=== PATIENT | male | born 1975 | race Caucasian/White ===

== ENCOUNTER 2023-12-16 20:12 | Observation (INO) | payer BC ==
--- NOTE | 2023-12-16 20:24 | ED ---
Chest Pain HPI - General Chief Complaint: Chest Pain Stated Complaint: chest pain Time Seen by Provider: 12/16/23 20:22 Source: patient, RN notes reviewed, old records reviewed Mode of arrival: ambulatory - History of Present Illness Initial Comments: Patient is a 48-year-old male to the ER for evaluation today. Patient presents today for evaluation of chest pain. Patient has history of chest pain starting yesterday left side of his chest is worse specially worse with movement but began to be worse today with sweating and shortness of breath he is also noted shortness of breath with exertion for the last week or so, history of high blood pressure. Family history of heart disease father around the age of 60 MD Complaint: chest pain -: days(s) Onset: during rest, during exertion Pain Location: substernal, left chest Pain Radiation: none Severity: moderate Severity scale (1-10): 5 Quality: tightness, aching Consistency: constant Improves With: nothing Worsens With: nothing Anginal Symptoms: nausea, vomiting Other Symptoms: cough - Related Data Allergies Allergy/AdvReac Type Severity Reaction Status Date / Time No Known Allergies Allergy Verified 12/16/23 20:21 Review of Systems ROS Statement: Those systems with pertinent positive or pertinent negative responses have been documented in the HPI. ROS Other: All systems not noted in ROS Statement are negative. EKG Findings - EKG Comments: EKG Findings:: EKG is sinus 80 NE 144 QRS 89 QTc 389 - EKG Results: EKG: interpreted by FAMILIA Past Medical History Past Medical History: No Reported History Additional Past Surgical History / Comment(s): Crohns surgery Smoking Status: Former smoker Past Alcohol Use History: Occasional Past Drug Use History: None Reported General Exam General appearance: alert, in no apparent distress Head exam: Present: atraumatic, normocephalic, normal inspection Eye exam: Present: normal appearance, PERRL, EOMI. Absent: scleral icterus, conjunctival injection, periorbital swelling ENT exam: Present: normal exam, mucous membranes moist Neck exam: Present: normal inspection. Absent: tenderness, meningismus, lymphadenopathy Respiratory exam: Present: normal lung sounds bilaterally. Absent: respiratory distress, wheezes, rales, rhonchi, stridor Cardiovascular Exam: Present: regular rate, normal rhythm, normal heart sounds. Absent: systolic murmur, diastolic murmur, rubs, gallop, clicks GI/Abdominal exam: Present: soft, normal bowel sounds. Absent: distended, tende rness, guarding, rebound, rigid Extremities exam: Present: normal inspection, full ROM, normal capillary refill. Absent: tenderness, pedal edema, joint swelling, calf tenderness Back exam: Present: normal inspection Neurological exam: Present: alert, oriented X3, CN II-XII intact Psychiatric exam: Present: normal affect, normal mood Skin exam: Present: warm, dry, intact, normal color. Absent: rash Course Vital Signs 12/16/23 20:15 Temperature 98.6 F Pulse Rate 81 Respiratory 18 Rate Blood Pressure 184/97 O2 Sat by Pulse 100 Oximetry - Reevaluation(s) Reevaluation #1: 12/16/23 21:52 Medical record is reviewed Reevaluation #2: 12/16/23 21:52 Patient symptoms unchanged Reevaluation #3: 12/16/23 22:57 Patient informed of results and questions answered Reevaluation #4: Was pt. sent in by a medical professional or institution (Dr. PA, SERVICE DOG TRAINER, urgent care, hospital, or usp...) When possible be specific @ -no Did you speak to anyone other than the patient for history (EMS, parent, family, police, friend...)? What history was obtained from this source @ -no Did you review nursing and triage notes (agree or disagree)? Why? @ -agree Are old charts reviewed (outside hosp., previous admission, EMS record, old EKG, old radiological studies, urgent care reports/EKG's, usp records)? Report findings @ -yes Differential Diagnosis (chest pain, altered mental status, abdominal pain women, abdominal pain men, vaginal bleeding, weakness, fever, dyspnea, syncope, headache, dizziness, GI bleed, back pain, seizure, CVA, palpatations, mental health, musculoskeletal)? @ -prior EKG interpreted by me (3pts min.). @ -yes X-rays interpreted by me (1pt min.). @ -yes negative for acute disease CT interpreted by me (1pt min.). @ -no U/S interpreted by me (1pt. min.). @ -no What testing was considered but not performed or refused? (CT, X-rays, U/S, labs)? Why? @ -none What meds were considered but not given or refused? Why? @ -none Did you discuss the management of the patient with other professionals (professionals i.e. , PA, SERVICE DOG TRAINER, lab, RT, psych nurse, social services aide, cloth beamer, teacher, chief media officer, case preparer and liner)? Give summary @ -no Was smoking cessation discussed for >3mins.? @ -no Was critical care preformed (if so, how long)? @ -no Were there social determinants of health that impacted care today? How? (Homelessness, low income, unemployed, alcoholism, drug addiction, transportation, low edu. Level, literacy, decrease access to med. care, intermediate, rehab)? @ -none Was there de-escalation of care discussed even if they declined (Discuss DNR or withdrawal of care, Hospice)? DNR status @ -no What co-morbidities impacted this encounter? (DM, HTN, Smoking, COPD, CAD, Cancer, CVA, ARF, Chemo, Hep., AIDS, mental health diagnosis, sleep apnea, morbid obesity)? @ -none Was patient admitted / discharged? Hospital course, mention meds given and route, prescriptions, significant lab abnormalities, going to OR and other pertinent info. @ - Undiagnosed new problem with uncertain prognosis? @ -no Drug Therapy requiring intensive monitoring for toxicity (Heparin, Nitro, Insulin, Cardizem)? @ -no Were any procedures done? @ -no Diagnosis/symptom? @ - Acute, or Chronic, or Acute on Chronic? @ -Acute Uncomplicated (without systemic symptoms) or Complicated (systemic symptoms)? @ -Complicated Side effects of treatment? @ -no Exacerbation, Progression, or Severe Exacerbation? @ -exacerbation Poses a threat to life or bodily function? How? (Chest pain, [place], MA, pneumonia, PE, COPD, DKA, ARF, appy, cholecystitis, CVA, Diverticulitis, Homicidal, Suicidal, threat to staff... and all critical care pts) @ -yes Reevaluation #5: Differential Chest Pain: Stable Angina, Unstable Angina, STEMI, NSTEMI Aortic Dissection, Pneumothorax, Musculoskeletal, Esophageal Spasm GERD, Cholecystitis, Pancreatitis, Zoster, this is not meant to be an all-inclusive list. - Consultations Consultation #1: With [facility] okay to admit this patient Chest Pain MDM - MDM 48 male to the ER for evaluation of chest pain. Patient has persistent chest pain here in the emergency department left-sided chest pain with a negative CTA. Troponin is negative EKG is normal patient admitted for cardiology evaluation with history of high blood pressure and strong family history of heart disease Disposition Clinical Impression: Chest pain Disposition: ADMITTED IP TO THIS HOSP Condition: Undetermined Instructions (If sedation given, give patient instructions): Chest Pain (ED) Is patient prescribed a controlled substance at d/c from ED?: No Referrals: Alban Menjivar MD [Primary Care Provider] - 1-2 days Time of Disposition: 23:00
[2023-12-16 21:42] LABS: Basophils % (A) 0 %; Eosinophils # (A) 0.3 k/uL (0-0.7); Eosinophils % (A) 3 %; HCT 40.8 % (39.0-53.0); HGB 13.7 gm/dL (13.0-17.5); Lymphocytes # (A) 2.1 k/uL (1.0-4.8); Lymphocytes % (A) 24 %; MCH 29.8 pg (25.0-35.0); MCHC 33.6 g/dL (31.0-37.0); MCV 88.7 fL (80.0-100.0); Mean Platelet Volume 7.7; Monocytes # (A) 0.5 k/uL (0-1.0); Monocytes % (A) 6 %; Neutrophils # (A) 5.5 k/uL (1.3-7.7); Neutrophils % (A) 64 %; Platelet Count 252 k/uL (150-450); RBC 4.59 m/uL (4.30-5.90); RDW 13.4 % (11.5-15.5); WBC 8.5 k/uL (3.8-10.6)
[2023-12-16 22:00] LABS: INR 0.9 (<1.2); Partial Thromboplastin Time 23.3 sec (22.0-30.0)
[2023-12-16 22:02] LABS: ALT 22 U/L (4-49); AST 21 U/L (17-59); African American GFR (CKD) >90 (>60 ml/min/1.73 sqM); Alkaline Phosphatase 109 U/L (38-126); Anion Gap 8 mmol/L; Blood Urea Nitrogen 21 mg/dL (9-20); Calcium 9.3 mg/dL (8.4-10.2); Carbon Dioxide 26 mmol/L (22-30); Chloride 109 mmol/L (98-107); Glucose 78 mg/dL (74-99); Lipase 63 U/L (23-300); Non-African American GFR(CKD) 87 (>60 ml/min/1.73 sqM); Potassium 4.1 mmol/L (3.5-5.1); Sodium 143 mmol/L (137-145); Total Bilirubin 0.5 mg/dL (0.2-1.3); Total Protein 6.8 g/dL (6.3-8.2)
[2023-12-16 22:09] LABS: NT-Pro-B-Type Natriuretic Pept 46 pg/mL
--- NOTE | 2023-12-16 22:13 | CT ---
EXAMINATION TYPE: CT angio chest CT DLP: 419.7 mGycm, Automated exposure control for dose reduction was used. DATE OF EXAM: 12/16/2023 9:55 PM COMPARISON: None CLINICAL INDICATION:Male, 48 years old with history of cp; Pt presents to the ED with complaints of l ower back pain and sharp chest pain x1 day. TECHNIQUE/CONTRAST: CTA scan of the thorax is performed with IV Contrast, patient injected with 100 mL of Isovue 370, MIP images are created and reviewed these are created on a separate workstation.. FINDINGS: Pulmonary Artery: There is no evidence for a filling defect within the pulmonary vasculature to sugge st acute pulmonary embolism. The pulmonary artery is of normal size. Lungs/Pleura: No evidence of focal consolidation, pleural effusion or pneumothorax. Intrafissural lym ph node along the right major fissure. Airway: Large airways are patent. Heart: Heart is within normal limits for size. Vasculature: No evidence of aortic aneurysm. Mediastinum: No gross evidence of adenopathy. Musculoskeletal: No acute osseous abnormalities Soft Tissues: Unremarkable. Lower neck: No significant findings. Upper Abdomen: No significant findings. IMPRESSION: No evidence of pulmonary embolism.
[2023-12-16] MEDS ORDERED: NITROGLYCERIN SL TABS 0.4 MG TAB SUBLINGUAL PRN (22:50)
[2023-12-16] MEDS: ASPIRIN 81 MG PO STA (23:33)
[2023-12-16] MEDS: HEPARIN SODIUM 1,000 UN/ML (10ML VL) IV ONE (23:34)
[2023-12-16] MEDS: HEPARIN SOD,PORK IN 0.45% NACL 25,000 UNIT in 0.45% NACL 1 250ML.BAG IV SCH (23:37)
[2023-12-17] MEDS: MORPHINE SULFATE 4 MG/ML SYRINGE IV PRN (00:38)
[2023-12-17 03:28] LABS: Mean Platelet Volume 8.1; Platelet Count 228 k/uL (150-450)
[2023-12-17] MEDS: ATORVASTATIN 80 MG TAB PO SCH (08:28)
[2023-12-17] MEDS: LOSARTAN 25 MG TAB PO SCH (08:28)
[2023-12-17] MEDS: METOPROLOL TARTRATE 25 MG TAB PO SCH (08:28)
[2023-12-17] MEDS: ASPIRIN 81 MG PO SCH (08:28)
[2023-12-17 08:47] LABS: Chol/HDL Ratio 3.44 Ratio; LDL Cholesterol,Calculated 89.1 mg/dL (0.0-131.0)
[2023-12-17] MEDS ORDERED: ASPIRIN 325 MG TAB PO SCH (09:00)
[2023-12-17] MEDS: HEPARIN SODIUM 1,000 UN/ML (10ML VL) IV PRN (11:26)
[2023-12-17] MEDS ORDERED: ALPRAZolam 0.5 MG TAB PO PRN (12:45)
[2023-12-17] MEDS ORDERED: NON FORMULARY DRUG (Rosuvastatin 20 MG Tablet) PO SCH (12:45)
[2023-12-17] MEDS ORDERED: NON FORMULARY DRUG (Aspirin [St. Joseph Aspirin Ec] 81 MG Tab) PO SCH (12:45)
--- NOTE | 2023-12-17 12:52 | P.HPIM ---
History of Present Illness 48-year-old pleasant male came in with complaints of back pain which started about couple days ago constant sharp in nature and then he started having chest pain and his blood pressure was elevated because of that reason his friends as ked him to come to ER. Patient had some nonspecific ST-T wave changes on both EKGs D-dimer is negative but CT angio of the chest was done with which did not show any pulmonary embolism or any other significant abnormality. Patient's troponins are negative patient still have some paraspinal tenderness. Patient has significant family history of premature coronary artery disease. Patient does have hypertension, hyperlipidemia his recent LDL is 89. Because of his risk factors cardiology evaluate the patient recommending stress test tomorrow morning. Chest pain is moderate severity no associated diaphoresis or lightheadedness. REVIEW OF SYSTEMS: CONSTITUTIONAL: No fever, no malaise, no fatigue. HEENT: No recent visual problems or hearing problems. Denied any sore throat. CARDIOVASCULAR: No orthopnea, PND, no palpitations, no syncope. PULMONARY: No shortness of breath, no cough, no hemoptysis. GASTROINTESTINAL: No diarrhea, no nausea, no vomiting, no abdominal pain. NEUROLOGICAL: No headaches, no weakness, no numbness. HEMATOLOGICAL: Denies any bleeding or petechiae. GENITOURINARY: Denies any burning micturition, frequency, or urgency. MUSCULOSKELETAL/RHEUMATOLOGICAL: Denies any joint pain, swelling, or any muscle pain. ENDOCRINE: Denies any polyuria or polydipsia. The rest of the 14-point review of systems is negative. PHYSICAL EXAMINATION: GENERAL: The patient is alert and oriented x3, not in any acute distress. Well developed, well nourished. HEENT: Pupils are round and equally reacting to light. EOMI. No scleral icterus. No conjunctival pallor. Normocephalic, atraumatic. No pharyngeal erythema. No thyromegaly. CARDIOVASCULAR: S1 and S2 present. No murmurs, rubs, or gallops. PULMONARY: Chest is clear to auscultation, no wheezing or crackles. ABDOMEN: Soft, nontender, nondistended, normoactive bowel sounds. No palpable organomegaly. MUSCULOSKELETAL: No joint swelling or deformity. EXTREMITIES: No cyanosis, clubbing, or pedal edema. NEUROLOGICAL: Gross neurological examination did not reveal any focal deficits. SKIN: No rashes. Assessment and plan -Chest pain rule out acute coronary syndromes appears to be atypical and appears to be musculoskeletal in origin. Patient takes [place] at home which will be continued and patient was started on Toradol for his back pain. Stress test tomorrow -History of Crohn's disease for which patient is on mesalamine which will be continued -Hypertension -Hyperlipidemia for above-mentioned chronic medical problems patient will be resumed on appropriate home medications DVT prophylaxis: Ambulation Past Medical History Past Medical History: No Reported History Additional Past Surgical History / Comment(s): Crohns surgery Smoking Status: Former smoker Past Alcohol Use History: Occasional Past Drug Use History: None Reported Medications and Allergies Home Medications Medication Instructions Recorded Confirmed Type ALPRAZolam [Xanax] 0.5 mg PO BID PRN 12/17/23 12/17/23 History Aspirin [[place] Aspirin EC] 324 mg PO ONETIME 12/17/23 12/17/23 History Cyclobenzaprine [Flexeril] 10 mg PO TID PRN 12/17/23 12/17/23 History HYDROcodone/APAP 10-325MG [[place] 1 tab PO Q8H PRN 12/17/23 12/17/23 History 10-325] Mesalamine [Lialda] 2.4 gm PO DAILY 12/17/23 12/17/23 History Pantoprazole [Protonix] 40 mg PO DAILY 12/17/23 12/17/23 History Rosuvastatin [Crestor] 20 mg PO DIRECTED 12/17/23 12/17/23 History Valsartan/Hydrochlorothiazide 1 tab PO DAILY 12/17/23 12/17/23 History [Valsartan-Hctz 160-12.5 mg Tab] Allergies Allergy/AdvReac Type Severity Reaction Status Date / Time No Known Allergies Allergy Verified 12/17/23 08:24 Physical Exam Vitals: Vital Signs Temp Pulse Pulse Resp BP Pulse Ox 12/17/23 10:57 68 18 144/99 96 12/17/23 08:27 77 12/17/23 08:25 98.1 F 79 18 142/101 96 12/17/23 06:57 70 18 150/100 98 12/17/23 04:00 73 18 144/98 96 12/16/23 23:00 71 18 142/100 97 12/16/23 22:00 79 18 145/99 95 12/16/23 20:15 98.6 F 81 18 184/97 100 Intake and Output 12/16/23 12/17/23 12/17/23 22:59 06:59 14:59 Intake Total 118.571 Balance 118.571 Intake: Intake, IV Titration 118.571 Amount Heparin Sod,Pork in 0.45% 118.571 NaCl 25,000 unit In 0.45 % NaCl 1 250ml.bag @ 11. 03 UNITS/KG/HR 10.006 mls /hr IV .Q24H [facility] Rx#: [id number] Other: Weight 90.718 kg Results CBC & Chem 7: 12/17/23 03:07 12/16/23 21:25 Labs: Abnormal Lab Results - Last 24 Hours (Table) 12/16/23 12/16/23 12/17/23 Range/Units 21:25 23:50 08:05 APTT 90.7 H 36.9 H (22.0-30.0) sec Chloride 109 H (98-107) mmol/L BUN 21 H (9-20) mg/dL 12/17/23 Range/Units 11:35 APTT 74.0 H (22.0-30.0) sec Chloride (98-107) mmol/L BUN (9-20) mg/dL
[2023-12-17] MEDS: FAMOTIDINE 20 MG TAB PO SCH (13:32)
--- NOTE | 2023-12-17 15:05 | P.CRDCN ---
History of Present Illness Consult date: 12/17/23 Consult reason: chest pain History of present illness: History of present illness: This is a 48-year-old male with past medical history of Crohn's disease. We have been asked to evaluate the patient for chest pain. Patient denies having any cardiac history has not had any cardiac workup and does not have a fishing worker. He does have a family history of father dying at age 61 from myocardial infarction. Patient presented to the hospital due to chest pain that was sharp in nature and started first in his back on the left side and then was present on the left sternal border. He states on Sunday he was running a tractor and was twisting and did the same on Sunday. The pain from Sunday worsened on Sunday. It is not worse with deep breathing. He states morphine has helped. He denies any associated symptoms such as shortness of breath, lightheadedness or dizziness, nausea, sweats. He states he did have some shortness of breath last evening. At home prior to arrival, he had a friend check his blood pressure and he was 180/100. Patient is seen today in the emergency center waiting for bed on the observation unit. Patient has been started on a heparin drip, and aspirin. EKG sinus rhythm T wave changes CTA of the chest revealed no evidence of pulmonary embolism. CBC INR, D-dimer within normal limits. BUN 21 creatinine 1.01. Troponins negative x 3. Liver function test are normal. Magnesium 2. Lipase 63. Home cardiac medications: None Review Of Systems: At the time of my exam: CONSTITUTIONAL: Denies fever or chills. HEENT: Denies blurred vision, vision changes, or eye pain. Denies hemoptysis CARDIOVASCULAR: Denies chest pain. Denies orthopnea. Denies PND. Denies palpitations RESPIRATORY: Denies shortness of breath. GASTROINTESTINAL: Denies abdominal pain. Denies nausea or vomiting. HEMATOLOGIC: Denies bleeding disorders. GENITOURINARY: Denies any blood in urine. SKIN: Denies pruitis. Denies rash. Physical examination: Gen: This is a 48-year-old male in no acute distress VS: reviewed, blood pressure 132/87, heart rate in the 70s, pulse ox 98% on room air. HEENT: Head is atraumatic, normocephalic. Pupils equal, round. Sclerae is anicteric. NECK: Supple. No JVD. LUNGS: Clear to auscultation. No wheezes or rhonchi. No intercostal retractions. HEART: Regular rate and rhythm. No murmur. ABDOMEN: Soft No tenderness. EXTREMITIES: No pedal edema. No calf tenderness. NEUROLOGICAL: Patient is awake, alert and oriented x3. Assessment: Atypical chest pain, acute coronary syndrome ruled out Chest pain most likely musculoskeletal related Hypertension Family history of premature coronary artery disease Plan: Continue current medications: Change aspirin to 81 mg daily, continue Lipitor, Lopressor, valsartan/hydrochlorothiazide Schedule patient for stress echocardiogram tomorrow Obtain 2-D echocardiogram and Doppler study to assess cardiac structure and function Discontinue heparin drip Further recommendations to follow based upon clinical course Thank you kindly for this consultation. Nurse practitioner note has been reviewed, I agree with documented findings and plan of care. Patient was seen and examined. Past Medical History Past Medical History: No Reported History Additional Past Surgical History / Comment(s): Crohns surgery Smoking Status: Former smoker Past Alcohol Use History: Occasional Past Drug Use History: None Reported Medications and Allergies Home Medications Medication Instructions Recorded Confirmed Type ALPRAZolam [Xanax] 0.5 mg PO BID PRN 12/17/23 12/17/23 History Aspirin [[place] Aspirin EC] 324 mg PO ONETIME 12/17/23 12/17/23 History Cyclobenzaprine [Flexeril] 10 mg PO TID PRN 12/17/23 12/17/23 History HYDROcodone/APAP 10-325MG [[place] 1 tab PO Q8H PRN 12/17/23 12/17/23 History 10-325] Mesalamine [Lialda] 2.4 gm PO DAILY 12/17/23 12/17/23 History Pantoprazole [Protonix] 40 mg PO DAILY 12/17/23 12/17/23 History Rosuvastatin [Crestor] 20 mg PO DIRECTED 12/17/23 12/17/23 History Valsartan/Hydrochlorothiazide 1 tab PO DAILY 12/17/23 12/17/23 History [Valsartan-Hctz 160-12.5 mg Tab] Allergies Allergy/AdvReac Type Severity Reaction Status Date / Time No Known Allergies Allergy Verified 12/17/23 08:24 Physical Exam Vitals: Vital Signs Temp Pulse Resp BP Pulse Ox 12/17/23 06:57 70 18 150/100 98 12/17/23 04:00 73 18 144/98 96 12/16/23 23:00 71 18 142/100 97 12/16/23 22:00 79 18 145/99 95 12/16/23 20:15 98.6 F 81 18 184/97 100 Intake and Output 12/16/23 12/17/23 12/17/23 22:59 06:59 14:59 Other: Weight 90.718 kg Results 12/17/23 03:07 12/16/23 21:25 Cardiac Enzymes 12/16/23 12/16/23 12/16/23 Range/Units 21:25 21:25 23:50 AST 21 (17-59) U/L Troponin I <0.012 <0.012 (0.000-0.034) ng/mL 12/17/23 Range/Units 03:07 AST (17-59) U/L Troponin I <0.012 (0.000-0.034) ng/mL Coagulation 12/16/23 12/16/23 Range/Units 21:25 23:50 PT 10.0 (10.0-12.5) sec APTT 23.3 90.7 H (22.0-30.0) sec CBC 12/16/23 12/17/23 Range/Units 21:25 03:07 WBC 8.5 (3.8-10.6) k/uL RBC 4.59 (4.30-5.90) m/uL Hgb 13.7 (13.0-17.5) gm/dL Hct 40.8 (39.0-53.0) % Plt Count 252 228 (150-450) k/uL Comprehensive Metabolic Panel 12/16/23 Range/Units 21:25 Sodium 143 (137-145) mmol/L Potassium 4.1 (3.5-5.1) mmol/L Chloride 109 H (98-107) mmol/L Carbon Dioxide 26 (22-30) mmol/L BUN 21 H (9-20) mg/dL Creatinine 1.01 (0.66-1.25) mg/dL Glucose 78 (74-99) mg/dL Calcium 9.3 (8.4-10.2) mg/dL AST 21 (17-59) U/L ALT 22 (4-49) U/L Alkaline Phosphatase 109 (38-126) U/L Total Protein 6.8 (6.3-8.2) g/dL Albumin 4.0 (3.5-5.0) g/dL Current Medications Generic Name Dose Route Start Last Admin Trade Name Freq PRN Reason Stop Dose Admin Aspirin 325 mg 12/17/23 09:00 Aspirin 325 Mg Tab PO DAILY REPLACED BY [facility] Atorvastatin Calcium 80 mg 12/17/23 09:00 Atorvastatin 80 Mg Tab PO DAILY REPLACED BY [facility] Heparin Sodium/Sodium Chloride 250 mls @ 10.006 mls/hr 12/16/23 23:00 12/16/23 23:37 25,000 unit/ Sodium Chloride IV 11.03 units/kg/hr .Q24H DERIAN 10.006 mls/hr Administration Protocol 11.03 UNITS/KG/HR Metoprolol Tartrate 25 mg 12/17/23 09:00 Metoprolol Tartrate 25 Mg Tab PO BID REPLACED BY [facility] Morphine Sulfate 4 mg 12/16/23 22:50 12/17/23 07:02 Morphine Sulfate 4 Mg/Ml Syringe IV 4 mg Q4HR PRN Administration Chest Pain Nitroglycerin 0.4 mg 12/16/23 22:50 Nitroglycerin Sl Tabs 0.4 Mg Tab SUBLINGUAL Q5M PRN Chest Pain Intake and Output 12/16/23 12/17/23 12/17/23 22:59 06:59 14:59 Other: Weight 90.718 kg 12/17/23 03:07 12/16/23 21:25
[2023-12-17] MEDS: BALSALAZIDE DISODIUM 750 MG CAPSULE PO SCH (15:32)
[2023-12-17] MEDS: KETOROLAC 15 MG/ML 1 ML VIAL IVP PRN (15:35)
[2023-12-17] MEDS: HYDROcodone/APAP 10-325MG 1 EACH TAB PO PRN (17:57)
[2023-12-17] MEDS: CYCLOBENZAPRINE 10 MG TAB PO PRN (17:58)
--- NOTE | 2023-12-17 19:49 | CA ---
Transthoracic Echo Report Name: Jonathan Yip Age: 48 Gender: M : 1975 Exam Date: 12/17/2023 15:08 Exam Location: [place] [facility] Ht (in): 69 Wt (lb): 200 Ordering Physician: Cornell Zambrano DO Attending/Referring Phys: [id number], Juan Manuel Firing Pin Gauger Antonieta Irene RDCS Procedure CPT: Indications: CP Cardiac Hx: Technical Quality: Good Contrast 1: Total Dose (mL): Contrast 2: Total Dose (mL): MEASUREMENTS (Male / Female) Normal Values 2D ECHO LV Diastolic Diameter PLAX 5.0 cm 4.2 - 5.9 / 3.9 - 5.3 cm LV Systolic Diameter PLAX 2.9 cm IVS Diastolic Thickness 0.9 cm 0.6 - 1.0 / 0.6 - 0.9 cm LVPW Diastolic Thickness 0.9 cm 0.6 - 1.0 / 0.6 - 0.9 cm LV Relative Wall Thickness 0.4 RV Internal Dim ED PLAX 2.4 cm LA Systolic Diameter LX 3.0 cm 3.0 - 4.0 / 2.7 - 3.8 cm LV Diastolic Volume MOD BP 38.3 cm??? 67 - 155 / 56 - 104 cm??? LV Systolic Volume MOD BP 19.5 cm??? 22 - 58 / 19 - 49 cm??? LV Ejection Fraction MOD BP 49.1 % >= 55 % LV Cardiac Index MOD BP 655.7 cm???/min???m??? LV Diastolic Volume MOD 4C 44.1 cm??? LV Systolic Volume MOD 4C 19.6 cm??? LV Ejection Fraction MOD 4C 55.5 % LV Cardiac Index MOD 4C 852.6 cm???/min???m??? LV Diastolic Length 4C 6.9 cm LV Systolic Length 4C 5.9 cm LV Diastolic Volume MOD 2C 30.4 cm??? LV Systolic Volume MOD 2C 16.7 cm??? LV Ejection Fraction MOD 2C 45.1 % LV Cardiac Index MOD 2C 477.7 cm???/min???m??? LV Diastolic Length 2C 6.2 cm LV Systolic Length 2C 5.8 cm LA Volume 27.3 cm??? 18 - 58 / 22 - 52 cm??? LA Volume Index 12.8 cm???/m??? 16 - 28 cm???/m??? M-MODE Aortic Root Diameter MM 3.4 cm LA Systolic Diameter MM 2.9 cm LA Ao Ratio MM 0.8 AV Cusp Separation MM 2.0 cm DOPPLER AV Peak Velocity 160.3 cm/s AV Peak Gradient 10.3 mmHg MV Area PHT 4.8 cm??? Mitral E Point Velocity 97.2 cm/s Mitral A Point Velocity 62.7 cm/s Mitral E to A Ratio 1.6 MV Deceleration Time 159.7 ms TR Peak Velocity 235.0 cm/s TR Peak Gradient 22.1 mmHg Right Ventricular Systolic Press 26.2 mmHg FINDINGS Left Ventricle Left ventricular ejection fraction is estimated at 55-60 %. Mildly decreased left ventricular ejection fraction. Normal left ventricular systolic function with no obvious regional wall motion abnormalities. Left ventricular cavity size normal. Right Ventricle Normal right ventricular size and function. Right ventricular systolic pressure within normal limits. Right Atrium Normal right atrial size. Left Atrium Normal left atrial size. Mitral Valve Structurally normal mitral valve. Trace mitral regurgitation. Aortic Valve Trileaflet aortic valve. No aortic valve stenosis or regurgitation. Tricuspid Valve Structurally normal tricuspid valve. Trace to mild tricuspid regurgitation. Pulmonic Valve Structurally normal pulmonic valve. No pulmonic stenosis. No pulmonic regurgitation. Pericardium No pericardial or pleural effusion. Aorta Normal size aortic root and proximal ascending aorta. CONCLUSIONS Normal LV systolic function No significant valvular abnormalities noted Normal pulmonary artery systolic pressure Previewed by: Dr. Mickey Glass MD (Electronically Signed) Final Date: 17 December 2023 19:48
[2023-12-18] MEDS: PANTOPRAZOLE 40 MG TABLET PO SCH (06:17)
[2023-12-18 07:59] VITALS: RESP 16
[2023-12-18] MEDS: VALSARTAN 160 MG TAB PO SCH (08:44)
[2023-12-18] MEDS: hydroCHLOROthiazide 12.5 MG CAP PO SCH (08:44)
[2023-12-18 11:24] LABS: Platelet Count 193 X 10*3/uL (140-440)
--- NOTE | 2023-12-18 11:50 | CA ---
Stress Echo Report Jonathan Yip Age: 48 Gender: M : 1975 Exam Date: 12/18/2023 10:57 Exam Location: [facility] Stress Ht (in): 69 Wt (lb): 200 Ordering Physician: Taty Shearer Referring Physician: Manfred SORIANO System Sales Consultant: NATALIE Technologist Procedure CPT: Indication: CP ICD-9 Codes: Rhythm: Patient History: Cardiac Medications: SEE LIST Medications in past 24 hours: Contrast: N/A Stress Results Protocol: Ben Total dose(mL): NA Exercise Duration (min:sec): 9:[address] Depression (mm): Angina Score: Ramos Score: METS: 10.9 Resting HR: 84 Resting BP: 138 / 83 Peak HR: 157 Peak BP: 194 / 63 Max Predicted HR: 171 92 % Max Predicted HR Target HR: 145 Double Product: 50429 Stress Summary: BP Response: Reason for Termination: Reached target heart rate or work-load Cardiac Symptoms: NO SYMPTOMS ECG Analysis Resting ECG: Stress ECG: Arrhythmia: Echo Analysis Resting Echo: Peak Echo Analysis: MEASUREMENTS (Male/Female) Normal Values CONCLUSIONS Excellent exercise tolerance Normal electrocardiogram and echocardiogram in response to exercise Dr. Mickey Glass MD (Electronically Signed) Final Date: 18 December 2023 11:49
--- NOTE | 2023-12-18 13:47 | P.PN ---
Subjective Progress Note Date: 12/18/23 Consult reason: chest pain History of present illness: History of present illness: This is a 48-year-old male with past medical history of Crohn's disease. We have been asked to evaluate the patient for chest pain. 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 He does have a family history of father dying at age 61 from myocardial infarction. Patient presented to the hospital due to chest pain that was sharp in nature and started first in his back on the left side and then was present on the left sternal border. He states on Sunday he was running a tractor and was twisting and did the same on Sunday. The pain from Sunday worsened on Sunday. It is not worse with deep breathing. He states morphine has helped. He denies any associated symptoms such as shortness of breath, lightheadedness or dizziness, nausea, sweats. He states he did have some shortness of breath last evening. At home prior to arrival, he had a friend check his blood pressure and he was 180/100. Patient is seen today in the emergency center waiting for bed on the observation unit. Patient has been started on a heparin drip, and aspirin. EKG sinus rhythm T wave changes CTA of the chest revealed no evidence of pulmonary embolism. CBC INR, D-dimer within normal limits. BUN 21 creatinine 1.01. Troponins negative x 3. Liver function test are normal. Magnesium 2. Lipase 63. Home cardiac medications: None 12/17 Patient states that his chest pains became much better after his blood pressure was improved. This morning blood pressure readings are 136/84, heart rate is in the 60s and 70s, pulse ox 100% on room air. Echocardiogram reveals normal LV systolic function. No significant valvular abnormalities noted. Normal pulmonary artery systolic pressure. Stress echocardiogram reveals excellent exercise tolerance. Normal electrocardiogram and echocardiogram response to exercise. Physical examination: Gen: This is a 48-year-old male in no acute distress VS: reviewed HEENT: Head is atraumatic, normocephalic. Pupils equal, round. Sclerae is anicteric. LUNGS: Clear to auscultation. No wheezes or rhonchi. No intercostal retractions. HEART: Regular rate and rhythm. No murmur. EXTREMITIES: No pedal edema. No calf tenderness. Assessment: Atypical chest pain, acute coronary syndrome ruled out Chest pain most likely musculoskeletal related Hypertension Family history of premature coronary artery disease Plan: Continue patient on current blood pressure medications Patient is cleared for discharge and may follow-up in the office with Dr. Glass in 2 weeks. Nurse practitioner note has been reviewed, I agree with documented findings and plan of care. Patient was seen and examined. Objective - Vital Signs Vital signs: Vital Signs Temp 98 F 12/18/23 07:00 Pulse 73 12/18/23 07:00 Resp 16 12/18/23 07:00 BP 136/84 12/18/23 07:00 Pulse Ox 100 12/18/23 07:00 FiO2 Intake & Output 12/17/23 12/18/23 12/18/23 18:59 06:59 18:59 Intake Total 118.571 Balance 118.571 Weight 90.718 kg Intake: Intake, IV Titration 118.571 Amount Heparin Sod,Pork in 0.45% 118.571 NaCl 25,000 unit In 0.45 % NaCl 1 250ml.bag @ 11. 03 UNITS/KG/HR 10.006 mls /hr IV .Q24H [facility] Rx#: [id number] Other: # Voids 1 - Labs CBC & Chem 7: 12/18/23 07:23 12/16/23 21:25 Labs: Abnormal Lab Results - Last 24 Hours (Table) 12/17/23 Range/Units 11:35 APTT 74.0 H (22.0-30.0) sec
[2023-12-18 14:47] VITALS: BP 145/83; PULSE 68; TEMP 98.2
--- NOTE | 2023-12-19 15:57 | P.DS ---
Providers Date of admission: 12/16/23 22:55 Attending physician: Rosemary Ly Consults: 12/16/23 22:51 Consult Physician Urgent Consulting Provider: Hung Luis Consult Reason/Comments: cp Do you want consulting provider notified?: Yes Primary care physician: Alban Menjivar [facility] Course: Final Diagnosis -Chest pain secondary to uncontrolled blood pressure. Stress test normal. -History of Crohn's disease for which patient is on mesalamine which will be continued -Hypertension, uncontrolled. 184/97 on admission. -Hyperlipidemia for above-mentioned chronic medical problems patient will be resumed on appropriate home medications Discharge Disposition Patient stable for discharge home. Cleared by cardiology to follow-up in the office with Dr. Forte in 2 weeks. Patient was discharged on increased statin to be with Lipitor 80 mg daily. Additionally patient was started on metoprolol 25 mg twice a day. Patient to continue on his same dose of the valsartan hydrochlorothiazide combination tablet. Patient to see his PCP Dr. Pires 1 to 2 days. Hospital Course 48-year-old pleasant male came in with complaints of back pain which started about couple days ago constant sharp in nature and then he started having chest pain and his blood pressure was elevated because of that reason his friends asked him to come to ER. Patient had some nonspecific ST-T wave changes on both EKGs D-dimer is negative but CT angio of the chest was done with which did not show any pulmonary embolism or any other significant abnormality. Patient's troponins are negative patient still have some paraspinal tenderness. Patient has significant family history of premature coronary artery disease. Patient does have hypertension, hyperlipidemia his recent LDL is 89. Because of his risk factors cardiology evaluate the patient recommending stress test. Chest pain is moderate severity no associated diaphoresis or lightheadedness. Echocardiogram reveals normal LV systolic function. No significant valvular a bnormalities noted. Normal pulmonary artery systolic pressure. Stress echocardiogram reveals excellent exercise tolerance. Normal electrocardiogram and echocardiogram response to exercise. Currently denies chest pain denies shortness of breath no nausea vomiting or diarrhea focal logical exam was negative and hemodynamically he is stable he will be discharged home. Please see medication reconciliation for a list of current medications. Thank you for allowing us to participate in the care of this patient. The impression and plan of care has been dictated by Aisha Winters, Nurse Practitioner as directed. Dr. Jaden MD I have performed a history and physical examination and medical decision making of this patient, discussed the same with the dictator, and agree with the dictators assessment and plan as written, documented as a scribe. Based on total visit time, I have performed more than 50% of this visit. Patient Condition at Discharge: Fair Plan - Discharge Summary New Discharge Prescriptions: New Aspirin 81 mg PO DAILY #30 tab Atorvastatin [Lipitor] 80 mg PO DAILY #30 tab Metoprolol Tartrate [Lopressor] 25 mg PO BID #60 tab Continue ALPRAZolam [Xanax] 0.5 mg PO BID PRN PRN Reason: Anxiety Valsartan/Hydrochlorothiazide [Valsartan-Hctz 160-12.5 mg Tab] 1 tab PO DAILY Pantoprazole [Protonix] 40 mg PO DAILY Mesalamine [Lialda] 2.4 gm PO DAILY HYDROcodone/APAP 10-325MG [E[place] 10-325] 1 tab PO Q8H PRN PRN Reason: Pain Cyclobenzaprine [Flexeril] 10 mg PO TID PRN PRN Reason: Muscle Spasm Discontinued Rosuvastatin [Crestor] 20 mg PO DIRECTED Aspirin [Kenedy Aspirin EC] 324 mg PO ONETIME Discharge Medication List ALPRAZolam [Xanax] 0.5 mg PO BID PRN 12/17/23 [History] Cyclobenzaprine [Flexeril] 10 mg PO TID PRN 12/17/23 [History] HYDROcodone/APAP 10-325MG [Epes 10-325] 1 tab PO Q8H PRN 12/17/23 [History] Mesalamine [Lialda] 2.4 gm PO DAILY 12/17/23 [History] Pantoprazole [Protonix] 40 mg PO DAILY 12/17/23 [History] Valsartan/Hydrochlorothiazide [Valsartan-Hctz 160-12.5 mg Tab] 1 tab PO DAILY 12/17/23 [History] Aspirin 81 mg PO DAILY #30 tab 12/18/23 [Rx] Atorvastatin [Lipitor] 80 mg PO DAILY #30 tab 12/18/23 [Rx] Metoprolol Tartrate [Lopressor] 25 mg PO BID #60 tab 12/18/23 [Rx] Follow up Appointment(s)/Referral(s): Mickey Glass MD [STAFF PHYSICIAN] - 2 Weeks Alban Menjivar MD [Primary Care Provider] - 1-2 days Patient Instructions/Handouts: Chest Pain (ED) Discharge Disposition: HOME SELF-CARE
== END 2023-12-18 14:51 | disposition home or self-care (01) ==
LOC: EC 20:12 → 6NMEDSUR 22:55
PROVIDERS: ADMIT Hospitalist; ATTEND Hospitalist
DX: I10 Essential (primary) hypertension (principal); E78.5 Hyperlipidemia, unspecified; K50.90 Crohn's disease, unspecified, without complications; M54.9 Dorsalgia, unspecified; Z79.899 Other long term (current) drug therapy; Z87.891 Personal history of nicotine dependence; Z82.49 Family history of ischemic heart disease and other diseases of the circulatory system
CPT/HCPCS: 96376 ×2; 96365; 96366; 96375; 99285; 36415; 93005 ×2; 93306; 93351; 85379; 83880; 80061; 80053; 83690; 83735; 84484 ×2; 85025; 85049 ×2; 85610; 85730 ×2; 71275; G0378 ×3; J2270; J1644 ×3; J1885; Q9967